=== PATIENT | male | born 1960 | race Caucasian/White ===

== ENCOUNTER → 2016-06-16 | Outpatient (CLI) | payer BC, OTHER ==
[2016-06-16 13:29] LABS: BASO % 0.2 % (0.0-1.0); EOS # 0.1 K/mm3 (0.0-0.50); EOS % 0.8 % (0.0-3.0); LARGE UNSTAINED CELL # 0.2 K/mm3 (0.0-0.4); LYMPH % 23.3 % (24.0-44.0); MEAN CORPUSCULAR HEMOGLOBIN 34.3 pg (27.0-33.0); MEAN CORPUSCULAR HGB CONC 33.4 g/dl (32.0-36.5); MEAN CORPUSCULAR VOLUME 102.5 fl (80.0-96.0); MONO # 0.6 K/mm3 (0.0-0.8); MONO % 6.7 % (0.0-5.0); NEUTROPHILS # 5.7 K/mm3 (1.8-7.7); PLATELET COUNT, AUTOMATED 180 k/mm3 (150-450); WHITE BLOOD COUNT 8.5 K/mm3 (4.0-10.0)
[2016-06-16 15:17] LABS: ALBUMIN 4.1 GM/DL (3.2-5.2); ALBUMIN/GLOBULIN RATIO 1.11 (1.00-1.93); ALKALINE PHOSPHATASE 58 U/L (45-117); ALT/SGPT 32 U/L (12-78); ANION GAP 11 MEQ/L (8-16); AST/SGOT 20 U/L (15-37); BILIRUBIN,TOTAL 0.6 MG/DL (0.2-1.0); BLOOD UREA NITROGEN 12 MG/DL (7-18); CALCIUM LEVEL 9.2 MG/DL (8.5-10.1); CARBON DIOXIDE LEVEL 26 MEQ/L (21-32); CHLORIDE LEVEL 104 MEQ/L (98-107); CHOLESTEROL LEVEL 170 MG/DL (<200); CREATININE FOR GFR 0.93 MG/DL (0.70-1.30); FREE T4 0.96 NG/DL (0.76-1.46); GLOMERULAR FILTRATION RATE > 60.0 (>56); GLUCOSE, FASTING 82 MG/DL (70-105); POTASSIUM SERUM 4.3 MEQ/L (3.5-5.1); SODIUM LEVEL 141 MEQ/L (136-145); TOTAL PROTEIN 7.8 GM/DL (6.4-8.2); TRIGLYCERIDES LEVEL 136 MG/DL (<150)
== END ==
LOC: M WUC 09:15
PROVIDERS: ATTEND Family Medicine
DX: Z13.220 Encounter for screening for lipoid disorders (principal); Z13.29 Encounter for screening for other suspected endocrine disorder; Z13.0 Encounter for screening for diseases of the blood and blood-forming organs and certain disorders involving the immune mechanism
CPT/HCPCS: 36415; 80053; 80061; 82306; 83036; 84439; 84443; 85025; G0103

== ENCOUNTER → 2016-07-23 | Outpatient (CLI) | payer BC, OTHER ==
[~2016-07-23] VITALS: Ht 185.4 cm; Wt 117.9 kg
[~2016-07-23] MED LIST: LIDOCAINE 2% INJ 100 MG/5 ML SDV (FOR ANES.) As Ordered ONE; NS 1,000 ML IV SCH; PROPOFOL 200 MG/20 ML VIAL As Ordered ONE; VITA-121 PO
--- NOTE | 2016-07-23 12:56 | ROOR ---
Patient Name: Antoine Cisneros Procedure Date: 07/23/2016 12:33 PM Date of : 1960 Age: 55 Room: [facility] Gender: Male Note Status: Finalized Procedure: Colonoscopy Indications: Screening for colorectal malignant neoplasm Providers: Artur Luna Jr, MD Referring MD: Eden CARDENAS DO Requesting Provider: Medicines: Propofol per Anesthesia Complications: No immediate complications. Procedure: Pre-Anesthesia Assessment: - Prior to the procedure, a History and Physical was performed, and patient medications and allergies were reviewed. The patient is competent. The risks and benefits of the procedure and the sedation options and risks were discussed with the patient. All questions were answered and informed consent was obtained. Patient identification and proposed procedure were verified by the physician and the nurse in the pre-procedure area and in the procedure room. Mental Status Examination: alert and oriented. Airway Examination: normal oropharyngeal airway and neck mobility. Respiratory Examination: clear to auscultation. CV Examination: normal. ASA Grade Assessment: II - A patient with mild systemic disease. After reviewing the risks and benefits, the patient was deemed in satisfactory condition to undergo the procedure. The anesthesia plan was to use moderate sedation / analgesia (conscious sedation). Immediately prior to administration of medications, the patient was re-assessed for adequacy to receive sedatives. The heart rate, respiratory rate, oxygen saturations, blood pressure, adequacy of pulmonary ventilation, and response to care were monitored throughout the procedure. The physical status of the patient was re-assessed after the procedure. The Colonoscope was introduced through the anus and advanced to the cecum, identified by appendiceal orifice and ileocecal valve. The patient tolerated the procedure well. The quality of the bowel preparation was adequate and good. Findings: The perianal and digital rectal examinations were normal. Pertinent negatives include normal sphincter tone, no palpable rectal lesions and no anal lesion or abnormality was detected. Non-bleeding internal hemorrhoids were found during endoscopy. The hemorrhoids were medium-sized. Multiple small and large-mouthed diverticula were found in the sigmoid colon. A medium polyp was found in the recto-sigmoid colon. The polyp was pedunculated. The polyp was removed with a hot snare. Resection and retrieval were complete. To prevent bleeding post-intervention, one hemostatic clip was successfully placed. There was no bleeding at the end of the procedure. Two polyps were found in the ascending colon and ileocecal valve. The polyps were small in size. These polyps were removed with a hot snare. Resection was complete, but the polyp tissue was only partially retrieved. The rectum, descending colon, transverse colon, cecum and appendiceal orifice appeared normal. Impression: - Non-bleeding internal hemorrhoids. - Diverticulosis in the sigmoid colon. - One medium polyp at the recto-sigmoid colon, removed with a hot snare. Resected and retrieved. Clip was placed. - Two small polyps in the ascending colon and at the ileocecal valve, removed with a hot snare. Complete resection. Partial retrieval. - The rectum, descending colon, transverse colon, cecum and appendiceal orifice are normal. Recommendation: - Discharge patient to home (ambulatory). - Repeat colonoscopy date to be determined after pending pathology results are reviewed for surveillance based on pathology results. Artur Luna MD Artur Luna Jr, MD 07/23/2016 12:55:44 PM This report has been signed electronically. Number of Addenda: 0 Note Initiated On: 07/23/2016 12:33 PM Estimated Blood Loss: Estimated blood loss: none.
[2016-07-23 13:18] VITALS: BP 137/84
== END ==
LOC: M OPP 10:59
PROVIDERS: ATTEND Surgery
DX: Z12.11 Encounter for screening for malignant neoplasm of colon (principal); D12.7 Benign neoplasm of rectosigmoid junction; D12.2 Benign neoplasm of ascending colon; D12.0 Benign neoplasm of cecum; K64.8 Other hemorrhoids; K57.30 Diverticulosis of large intestine without perforation or abscess without bleeding; E66.9 Obesity, unspecified; E55.9 Vitamin D deficiency, unspecified; Z96.642 Presence of left artificial hip joint; Z90.2 Acquired absence of lung [part of]; F17.200 Nicotine dependence, unspecified, uncomplicated; Z79.899 Other long term (current) drug therapy

== ENCOUNTER → 2020-08-14 | Outpatient (CLI) | payer OTHER, BC ==
[~2020-08-14] MED LIST changes: -LIDOCAINE 2% INJ 100 MG/5 ML SDV (FOR ANES.) As Ordered ONE; -NS 1,000 ML IV SCH; -PROPOFOL 200 MG/20 ML VIAL As Ordered ONE
[2020-08-14 10:19] LABS: BASO # 0.1 10^3/uL (0.0-0.2); BASO % 0.7 % (0.0-1.0); EOS # 0.1 10^3/uL (0.0-0.5); EOS % 1.3 % (0.0-3.0); HEMATOCRIT 52.7 % (42.0-52.0); HEMOGLOBIN 17.9 g/dl (13.5-17.5); LYMPH # 1.8 10^3/uL (1.5-5.0); LYMPH % 21.1 % (24.0-44.0); MEAN CORPUSCULAR HEMOGLOBIN 35.9 pg (27.0-33.0); MEAN CORPUSCULAR VOLUME 105.8 fl (80.0-96.0); MONO % 11.3 % (2.0-8.0); NEUTROPHILS # 5.7 10^3/uL (1.5-8.5); PLATELET COUNT, AUTOMATED 215 10^3/uL (150-450); RED BLOOD COUNT 4.98 10^6/uL (4.30-6.10); WHITE BLOOD COUNT 8.7 10^3/uL (4.0-10.0)
[2020-08-14 10:49] LABS: ALBUMIN 3.8 GM/DL (3.2-5.2); ALT/SGPT 39 U/L (12-78); BILIRUBIN,TOTAL 0.8 MG/DL (0.2-1.0); BLOOD UREA NITROGEN 10 MG/DL (7-18); CALCIUM LEVEL 9.9 MG/DL (8.5-10.1); CARBON DIOXIDE LEVEL 27 MEQ/L (21-32); CHLORIDE LEVEL 106 MEQ/L (98-107); CHOLESTEROL LEVEL 166 MG/DL (<200); CREATININE FOR GFR 0.78 MG/DL (0.70-1.30); FREE T4 0.99 NG/DL (0.76-1.46); GLOMERULAR FILTRATION RATE > 60.0 (>56); GLUCOSE, FASTING 88 MG/DL (70-100); HDL CHOLESTEROL 43 MG/DL (>40); LDL CHOLESTEROL 82 MG/DL (<100); NON-HDL-C 123 MG/DL; POTASSIUM SERUM 4.1 MEQ/L (3.5-5.1); SODIUM LEVEL 140 MEQ/L (136-145); TOTAL PROTEIN 7.4 GM/DL (6.4-8.2); TRIGLYCERIDES LEVEL 207 MG/DL (<150)
[2020-08-14 11:13] LABS: HEMOGLOBIN A1c 5.2 %
[2020-08-14 13:04] LABS: TOTAL 25(OH) VITAMIN D 11.3 NG/ML (30.0-100.0)
== END ==
LOC: M WUC 08:49
PROVIDERS: ATTEND Physician Assistant
DX: M25.551 Pain in right hip (principal); I48.0 Paroxysmal atrial fibrillation; E55.9 Vitamin D deficiency, unspecified; F17.210 Nicotine dependence, cigarettes, uncomplicated; Z13.29 Encounter for screening for other suspected endocrine disorder; Z13.220 Encounter for screening for lipoid disorders; Z12.5 Encounter for screening for malignant neoplasm of prostate; Z12.11 Encounter for screening for malignant neoplasm of colon

== ENCOUNTER → 2020-08-16 | Outpatient (CLI) | payer BC, OTHER ==
--- NOTE | 2020-08-19 09:19 | ECHO ---
DATE OF PROCEDURE: 08/16/2020 Age: 59 Gender: Male Height: 185 cm Weight: 120 kg REFERRING PHYSICIAN: Tyrese Craft PA-C INDICATION: Paroxysmal atrial fibrillation. MEASUREMENTS: IVS 1.0 cm LV 6.1 cm LVPW 0.8 cm LA 3.6 cm Aorta 4.9 cm Left atrial volume index 30 Inferior vena cava 1.5 cm/s Mitral E wave velocity 42 cm/s Mitral A wave 58 cm/s E prime septal 6.3 cm/s E prime lateral 7.9 cm/s FINDINGS: This study is of fair technical quality corresponding to patients body habitus. Underlying sinus rhythm. Left ventricle is moderately dilated. I do not appreciate any distinct segmental wall motion abnormalities based on rather limited views. Overall probably normal LV systolic function. Computer generated LVEF is 56%, which seems believable. Right ventricle is normal size and systolic function. Left atrium is mildly enlarged. Right atrium was poorly seen. The aortic, mitral, and tricuspid valves appear grossly normal. Pulmonic valve was not visualized. No pericardial effusion is noted. Inferior vena cava is of normal caliber. Aortic root is dilated at 4.9 cm. The aortic arch is also dilated at 3.7 cm. Abdominal aorta was not well seen. Doppler interrogation of the aortic valve reveals no significant stenosis or insufficiency. Same applies for mitral and tricuspid valves. Mitral inflow pattern and tissue Doppler imaging of the mitral annulus revealed grade 1 diastolic dysfunction. CONCLUSIONS: 1. Study is of fair technical quality, underlying sinus rhythm. 2. Dilated left ventricle (6.1 cm), with grossly preserved LV systolic function and grade 1 diastolic dysfunction. 3. No hemodynamically significant valvular disease. 4. Anatomical structure of the aortic valve was not well seen. 5. Dilated aortic root (4.9 cm) and aortic arch (3.7 cm). 6. No hemodynamically significant valvular disease. 7. Likely normal central venous pressure, unable to estimate pulmonary artery pressure. COMMENT: Compared to prior echocardiogram from 2013, there has been further enlargement of the aortic root from 4.7 to 4.9 cm. Because the study is technically limited, I would recommend obtaining a CT scan of the chest for proper measurements of the whole thoracic aorta. [facility]
== END ==
LOC: M CARPUL 08:49
PROVIDERS: ATTEND Physician Assistant
DX: I48.0 Paroxysmal atrial fibrillation (principal)

== ENCOUNTER → 2020-08-21 | Outpatient (CLI) | payer BC, OTHER ==
--- NOTE | 2020-08-21 16:14 | REP ---
INDICATION: NICOTINE DEPENDENCE. COMPARISON: None. TECHNIQUE: Axial noncontrast images from the thoracic inlet to the upper abdomen using low-dose lung screening technique (LDCT). As per the protocol only lung window images were sent to the read station for interpretation FINDINGS: There are no abnormal nodules, masses, or opacities. Grossly, the mediastinum and pulmonary rl are within normal limits. Grossly, the imaged upper abdomen and imaged osseous structures are within normal limits. IMPRESSION: Lung rads category 1 exam <Electronically signed by Yves Reeder > 08/21/20 [id number]
== END ==
LOC: M RAD 13:50
PROVIDERS: ATTEND Physician Assistant
DX: Z12.2 Encounter for screening for malignant neoplasm of respiratory organs (principal); F17.210 Nicotine dependence, cigarettes, uncomplicated

== ENCOUNTER → 2020-10-30 | Outpatient (CLI) | payer BC, OTHER ==
[2020-10-30 15:49] LABS: APPEARANCE, URINE CLEAR (CLEAR); BACTERIA, URINE AUTO NEGATIVE (NEGATIVE); BILIRUBIN, URINE AUTO NEGATIVE (NEGATIVE); BLOOD, URINE BLOOD NEGATIVE (NEGATIVE); COLOR, URINE YELLOW (YELLOW); GLUCOSE, URINE (UA) AUTO NEGATIVE (NEGATIVE); KETONE, URINE AUTO NEGATIVE (NEGATIVE); LEUKOCYTE ESTERASE, URINE AUTO NEGATIVE (NEGATIVE); MUCUS, URINE SMALL (NEGATIVE); NITRITE, URINE AUTO NEGATIVE (NEGATIVE); PROTEIN, URINE AUTO 1+ mg/dL (NEGATIVE); RBC, URINE AUTO 8 /HPF (0-3); SPECIFIC GRAVITY URINE AUTO 1.018 (1.002-1.035); SQUAMOUS EPITHELIAL CELL UR AU 0 /HPF (0-6); UROBILINOGEN, URINE AUTO 0.2 mg/dL (0.0-2.0); WBC, URINE AUTO 1 /HPF (0-3)
[2020-10-30 15:54] LABS: BASO % 0.4 % (0.0-1.0); EOS % 0.3 % (0.0-3.0); HEMOGLOBIN 16.9 g/dl (13.5-17.5); LYMPH # 1.7 10^3/uL (1.5-5.0); LYMPH % 17.9 % (24.0-44.0); MEAN CORPUSCULAR HEMOGLOBIN 36.6 pg (27.0-33.0); MEAN CORPUSCULAR HGB CONC 34.5 g/dl (32.0-36.5); MEAN CORPUSCULAR VOLUME 106.1 fl (80.0-96.0); MONO % 10.4 % (2.0-8.0); NEUTROPHILS # 6.5 10^3/uL (1.5-8.5); NEUTROPHILS % 70.5 % (36.0-66.0); PLATELET COUNT, AUTOMATED 202 10^3/uL (150-450); RED BLOOD COUNT 4.62 10^6/uL (4.30-6.10); WHITE BLOOD COUNT 9.2 10^3/uL (4.0-10.0)
[2020-10-30 16:31] LABS: BLOOD UREA NITROGEN 12 MG/DL (7-18); CALCIUM LEVEL 9.5 MG/DL (8.5-10.1); CARBON DIOXIDE LEVEL 28 MEQ/L (21-32); CHLORIDE LEVEL 105 MEQ/L (98-107); GLOMERULAR FILTRATION RATE > 60.0 (>56); GLUCOSE, FASTING 102 MG/DL (70-100); POTASSIUM SERUM 3.9 MEQ/L (3.5-5.1); SODIUM LEVEL 138 MEQ/L (136-145)
== END ==
LOC: M WUC 14:39
PROVIDERS: ATTEND Orthopaedic Surgery
DX: Z01.818 Encounter for other preprocedural examination (principal); M16.11 Unilateral primary osteoarthritis, right hip; Z13.88 Encounter for screening for disorder due to exposure to contaminants

== ENCOUNTER → 2021-10-28 | Outpatient (CLI) | payer BC, OTHER | LOC: M RAD 13:23 | PROVIDERS: ATTEND Physician Assistant | DX: F17.210 Nicotine dependence, cigarettes, uncomplicated (principal) ==

== ENCOUNTER → 2023-01-29 | Outpatient (CLI) | payer BC, OTHER | LOC: M RAD 12:52 | PROVIDERS: ATTEND Physician Assistant | DX: Z12.2 Encounter for screening for malignant neoplasm of respiratory organs (principal); F17.210 Nicotine dependence, cigarettes, uncomplicated ==

== ENCOUNTER → 2024-04-26 | Outpatient (CLI) | payer BC | LOC: M RAD 15:25 | PROVIDERS: ATTEND Physician Assistant | DX: F17.210 Nicotine dependence, cigarettes, uncomplicated (principal) ==

== ENCOUNTER 2024-05-25 10:25 | Day surgery (SDC) | payer BC ==
[~2024-05-25] VITALS: Ht 185.4 cm; Wt 116.1 kg
[~2024-05-25 10:25] MED LIST changes: +AMLO1TAB24 PO; +ASPI-226 PO; +OMEP40CA5 PO
[2024-05-25] MEDS ORDERED: GLYCOPYRROLATE INJ 0.2 MG/ML 2 ML VIAL As Ordered ONE (12:17)
[2024-05-25] MEDS ORDERED: propofoL 200 MG/20 ML VIAL As Ordered ONE (12:17)
[2024-05-25] MEDS ORDERED: LIDOCAINE 2% 100MG/5ML SDV (FOR ANES.) As Ordered ONE (12:17)
[2024-05-25 12:38] VITALS: TEMP 99.1
[2024-05-25 13:00] VITALS: BP 138/83; O2SAT 96
== END 2024-05-25 13:05 | disposition home or self-care (01) ==
LOC: M OPP 10:25
PROVIDERS: ATTEND Surgery
DX: D12.6 Benign neoplasm of colon, unspecified (principal); Z86.0100 Personal history of colon polyps, unspecified; Z79.82 Long term (current) use of aspirin; Z79.899 Other long term (current) drug therapy; F17.210 Nicotine dependence, cigarettes, uncomplicated
CPT/HCPCS: 45385; 88305; J1596

== ENCOUNTER 2024-11-06 15:18 | Inpatient (IN) | payer BC ==
[~2024-11-06] VITALS: Ht 185.4 cm; Wt 119.4 kg
[2024-11-06] MEDS ORDERED: EMER1PAK PO (15:53)
[2024-11-06] MEDS ORDERED: VITA100093 PO (15:53)
[2024-11-06] MEDS: METOPROLOL TART 25 MG TABLET PO ONE (16:20)
[2024-11-06] MEDS: METOPROLOL 5 MG/5 ML VIAL IV SCH (16:20)
[2024-11-06 16:26] LABS: BASO # 0.1 10^3/uL (0.0-0.2); BASO % 0.7 % (0.0-1.0); EOS # 0.0 10^3/uL (0.0-0.5); EOS % 0.4 % (0.0-3.0); LYMPH # 1.3 10^3/uL (1.5-5.0); LYMPH % 16.8 % (24.0-44.0); MONO # 1.1 10^3/uL (0.0-0.8); MONO % 14.1 % (2.0-8.0); NEUTROPHILS # 5.2 10^3/uL (1.5-8.5); NEUTROPHILS % 67.6 % (36.0-66.0); PLATELET COUNT, AUTOMATED 157 10^3/uL (150-450)
[2024-11-06] MEDS ORDERED: HOME MED LIST COMPLETE! XX SCH (16:40)
[2024-11-06 16:57] LABS: ALT/SGPT 46 U/L (7.0-40); AST/SGOT 39 U/L (<34); CALCIUM LEVEL 9.6 MG/DL (8.3-10.6); CARBON DIOXIDE LEVEL 29 MMOL/L (20-31); CHLORIDE LEVEL 101 MMOL/L (98-107); CREATININE FOR GFR 0.79 MG/DL (0.70-1.30); GLOMERULAR FILTRATION RATE > 90.0 (>49); MAGNESIUM LEVEL 1.6 MG/DL (1.8-2.4); POTASSIUM SERUM 3.9 MMOL/L (3.5-5.1); SODIUM LEVEL 140 MMOL/L (136-145)
[2024-11-06] MEDS: MAG SULF 1GM/100ML (MAG RUN) 1 GM in IV 1 EA IV ONE (17:57)
[2024-11-06] MEDS: DIGOXIN INJ 0.5 MG/2 ML AMP IV ONE (17:57)
[2024-11-06 19:01] LABS: VITAMIN B12 LEVEL 451 PG/ML (211-911)
[2024-11-06] MEDS: FOLIC ACID 1 MG TAB PO SCH (19:29)
[2024-11-06] MEDS: MULTIVITAMINS/MINERALS THERAP 1 TAB PO SCH (19:29)
[2024-11-06] MEDS: FUROSEMIDE 40 MG/4 ML VIAL IV ONE (20:12)
[2024-11-06] MEDS: APIXABAN 5 MG TAB PO SCH (20:16)
[2024-11-06] MEDS: THIAMINE 100 MG TAB PO SCH (20:16)
[2024-11-06] MEDS: METOPROLOL TART 25 MG TABLET PO SCH (20:16)
[2024-11-06] MEDS: DIGOXIN INJ 0.5 MG/2 ML AMP IV STA (23:16)
[2024-11-07] MEDS: METOPROLOL TART 25 MG TABLET PO SCH ×2 (02:00→20:40)
[2024-11-07 08:03] LABS: PLATELET COUNT, AUTOMATED 163 10^3/uL (150-450)
[2024-11-07] MEDS: AMIODARONE HCL 150 MG in IV 1 EA IV SCH (08:08)
[2024-11-07 08:28] LABS: PLATELET COUNT, AUTOMATED 157 10^3/uL (150-450)
[2024-11-07] MEDS: FUROSEMIDE 40 MG/4 ML VIAL IV SCH (08:36)
[2024-11-07] MEDS: OMEPRAZOLE 20MG CAP PO SCH (08:36)
[2024-11-07] MEDS: DIGOXIN 0.25 MG TAB PO ONE (08:36)
[2024-11-07] MEDS: ASPIRIN 81 MG ENTERIC TABLET PO SCH (08:37)
[2024-11-07 08:40] LABS: INR 1.22
[2024-11-07 08:49] LABS: ALT/SGPT 39 U/L (7.0-40); AST/SGOT 30 U/L (<34); CALCIUM LEVEL 9.3 MG/DL (8.3-10.6); CARBON DIOXIDE LEVEL 27 MMOL/L (20-31); CHLORIDE LEVEL 102 MMOL/L (98-107); CREATININE FOR GFR 0.69 MG/DL (0.70-1.30); GLOMERULAR FILTRATION RATE > 90.0 (>49); MAGNESIUM LEVEL 1.6 MG/DL (1.8-2.4); PHOSPHORUS LEVEL 3.7 MG/DL (2.4-5.1); POTASSIUM SERUM 3.8 MMOL/L (3.5-5.1); SODIUM LEVEL 141 MMOL/L (136-145)
[2024-11-07 08:56] LABS: ALT/SGPT 40 U/L (7.0-40); AST/SGOT 29 U/L (<34); CALCIUM LEVEL 9.7 MG/DL (8.3-10.6); CARBON DIOXIDE LEVEL 27 MMOL/L (20-31); CHLORIDE LEVEL 101 MMOL/L (98-107); CREATININE FOR GFR 0.70 MG/DL (0.70-1.30); GLOMERULAR FILTRATION RATE > 90.0 (>49); POTASSIUM SERUM 3.7 MMOL/L (3.5-5.1); SODIUM LEVEL 139 MMOL/L (136-145)
[2024-11-07] MEDS ORDERED: DIGOXIN 0.125 MG TAB PO SCH (09:00)
[2024-11-07 09:49] LABS: KETONE, URINE AUTO RFX NEGATIVE (NEGATIVE); LEUKOCYTE ESTERASE UR AUTO RFX NEGATIVE (NEGATIVE); NITRITE, URINE AUTO RFX NEGATIVE (NEGATIVE); RBC, URINE AUTO RFX 18 /HPF (0-3); SQUAM EPITHELIAL CELL UR AURFX 0 /HPF (0-6); WBC, URINE AUTO RFX 0 /HPF (0-3)
[2024-11-07] MEDS ORDERED: LEVALBUTEROL 1.25 MG 0.5ML CONCENTRATE NEB NEB PRN (11:50)
[2024-11-07] MEDS: AMIODARONE HCL 360 MG in IV 1 EA IV SCH ×2 (11:54→18:07)
[2024-11-07] MEDS: NICOTINE 21 MG/24 HR 1 EA TRANSDERMAL TD SCH (12:03)
[2024-11-07 12:08] LABS: D-DIMER QUANT 0.82 ug/mL (<0.5)
[2024-11-07] MEDS ORDERED: ISOVUE-370 76% 100 ML VIAL As Ordered ONE (19:53)
[2024-11-07 21:15] VITALS: BP 141/71; TEMP 97.4; O2SAT 94
[2024-11-07 22:00] VITALS: BP 141/71
[2024-11-07 23:54] VITALS: BP 119/75; TEMP 97.5; O2SAT 93
[2024-11-08] VITALS (8 sets, daily range): BP systolic 111–139; BP diastolic 69–84; TEMP 97.5–98; O2SAT 93–95
[2024-11-08 05:45] LABS: PLATELET COUNT, AUTOMATED 160 10^3/uL (150-450)
[2024-11-08 06:13] LABS: ALT/SGPT 33 U/L (7.0-40); AST/SGOT 23 U/L (<34); CALCIUM LEVEL 9.6 MG/DL (8.3-10.6); CARBON DIOXIDE LEVEL 28 MMOL/L (20-31); CHLORIDE LEVEL 102 MMOL/L (98-107); CREATININE FOR GFR 0.82 MG/DL (0.70-1.30); GLOMERULAR FILTRATION RATE > 90.0 (>49); POTASSIUM SERUM 3.5 MMOL/L (3.5-5.1); SODIUM LEVEL 140 MMOL/L (136-145)
[2024-11-08] MEDS ORDERED: MOM 30 ML SUSPENSION UDC PO PRN (07:55)
[2024-11-08 08:09] LABS: DIGOXIN LEVEL 0.6 NG/ML (0.8-2.0)
[2024-11-08] MEDS: DIGOXIN 0.125 MG TAB PO SCH (09:59)
[2024-11-08] MEDS: DOCUSATE SODIUM 100 MG CAPSULE PO SCH (10:00)
[2024-11-08] MEDS: DIGOXIN 0.125 MG TAB PO ONE (12:18)
[2024-11-08] MEDS: SENNA 8.6 MG TAB PO SCH (20:10)
[2024-11-08] MEDS: RAMELTEON 8 MG TAB PO SCH (20:10)
[2024-11-08] MEDS: AMIODARONE 200 MG TAB PO SCH (20:11)
[2024-11-09] VITALS (12 sets, daily range): BP systolic 100–123; BP diastolic 55–92; TEMP 97.3–98.2; O2SAT 92–98
[2024-11-09 04:45] LABS: PLATELET COUNT, AUTOMATED 144 10^3/uL (150-450)
[2024-11-09 05:11] LABS: ALT/SGPT 31 U/L (7.0-40); AST/SGOT 22 U/L (<34); CALCIUM LEVEL 9.1 MG/DL (8.3-10.6); CARBON DIOXIDE LEVEL 25 MMOL/L (20-31); CHLORIDE LEVEL 104 MMOL/L (98-107); CREATININE FOR GFR 0.74 MG/DL (0.70-1.30); GLOMERULAR FILTRATION RATE > 90.0 (>49); POTASSIUM SERUM 3.7 MMOL/L (3.5-5.1); SODIUM LEVEL 139 MMOL/L (136-145)
[2024-11-09 09:06] LABS: DIGOXIN LEVEL 0.5 NG/ML (0.8-2.0)
[2024-11-09] MEDS: VANICREAM MOISTURIZING SKIN CREAM 113GM TUBE TOP SCH (09:20)
[2024-11-09] MEDS: DIGOXIN 0.25 MG TAB PO STA (14:12)
[2024-11-10] MEDS ORDERED: AMIODARONE 200 MG TAB PO SCH
[2024-11-10 03:10] VITALS: BP 125/82; TEMP 97.3; O2SAT 94
[2024-11-10 04:00] VITALS: BP 125/82
[2024-11-10 06:29] LABS: PLATELET COUNT, AUTOMATED 138 10^3/uL (150-450)
[2024-11-10 06:58] LABS: ALT/SGPT 31 U/L (7.0-40); AST/SGOT 20 U/L (<34); CALCIUM LEVEL 9.6 MG/DL (8.3-10.6); CARBON DIOXIDE LEVEL 28 MMOL/L (20-31); CHLORIDE LEVEL 103 MMOL/L (98-107); CREATININE FOR GFR 0.83 MG/DL (0.70-1.30); GLOMERULAR FILTRATION RATE > 90.0 (>49); POTASSIUM SERUM 3.9 MMOL/L (3.5-5.1); SODIUM LEVEL 140 MMOL/L (136-145)
[2024-11-10 07:52] VITALS: BP 118/80; TEMP 97.3; O2SAT 95
[2024-11-10] MEDS ORDERED: METO50TA7 PO (08:39)
[2024-11-10] MEDS ORDERED: ELIQ5TAB PO (08:39)
[2024-11-10] MEDS ORDERED: AMIO400T2 PO (08:39)
[2024-11-10] MEDS ORDERED: FURO20TA2 PO (08:42)
[2024-11-10] MEDS ORDERED: DIGOXIN 0.25 MG TAB PO SCH (09:00)
[2024-11-10 09:24] VITALS: BP 121/82
[2024-11-10 09:35] VITALS: BP 121/82
[2024-11-10] MEDS ORDERED: AMIODARONE 200 MG TAB PO ONE (09:55)
[2024-11-10] MEDS ORDERED: MAGN1TAB26 PO (18:03)
[2024-11-10] MEDS ORDERED: METOPROLOL TART 50 MG TAB PO SCH (21:00)
== END 2024-11-10 11:25 | disposition home or self-care (01) | DRG 201 ==
LOC: M ED 15:18 → M ED INP 15:19 → OBSVTOIN 11-07 08:02 → M PCU 11-07 20:51
PROVIDERS: ADMIT Student in an Organized Health Care Education/Training Program; ATTEND Internal Medicine
PROC: B246ZZZ Ultrasonography of Right and Left Heart (ICD-10-PCS; principal; 2024-11-08)
DX: I48.92 Unspecified atrial flutter (principal); J96.01 Acute respiratory failure with hypoxia; I11.0 Hypertensive heart disease with heart failure; I50.30 Unspecified diastolic (congestive) heart failure; E83.42 Hypomagnesemia; K21.9 Gastro-esophageal reflux disease without esophagitis; F10.139 Alcohol abuse with withdrawal, unspecified; F17.210 Nicotine dependence, cigarettes, uncomplicated; E66.9 Obesity, unspecified; I87.2 Venous insufficiency (chronic) (peripheral); I48.20 Chronic atrial fibrillation, unspecified; R60.0 Localized edema; I73.9 Peripheral vascular disease, unspecified; Z79.82 Long term (current) use of aspirin; Z79.899 Other long term (current) drug therapy; Z86.718 Personal history of other venous thrombosis and embolism; Z68.34 Body mass index [BMI] 34.0-34.9, adult